=== PATIENT | male | born 2000 | race Caucasian/White ===

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

== ENCOUNTER 2019-12-31 17:38 | Emergency (ER) | payer OTHER, SELFPAY ==
--- NOTE | 2019-12-31 18:09 | RAD ---
RIGHT ANKLE RADIOGPAPHS THREE VIEWS: 12/31/19 PROVIDED CLINICAL HISTORY: Pain status post injury. FINDINGS: There is a conspicuous bone island involving the posterior aspect of the distal tibial metaphyseal re gion. There is no evidence for fracture or other acute osseous abnormality. If there is persistent cl inical concern, conservative management and follow-up imaging are advised. IMPRESSION: As above. POS: NUNO
[2019-12-31] MEDS ORDERED: Ketorolac Tromethamine 30 MG/ML VIAL ONE (18:15)
== END 2019-12-31 18:58 | disposition home or self-care (01) ==
LOC: ERS 17:38
DX: S93.401A Sprain of unspecified ligament of right ankle, initial encounter (principal); X50.9XXA Other and unspecified overexertion or strenuous movements or postures, initial encounter; Y93.67 Activity, basketball
CPT/HCPCS: 29515; J1885